=== PATIENT | female | born 1960 | race Caucasian/White ===

== ENCOUNTER 2024-09-01 15:20 | Emergency (ER) | payer OTHER, SELFPAY ==
[2024-09-01 15:26] VITALS: BP 112/77; PULSE 111; RESP 16; TEMP 36.4; O2SAT 97; BMI 21.7
--- NOTE | 2024-09-01 16:02 | ED_ITS ---
HPI - Abdominal Pain 2 General: Chief Complaint: Abdominal Pain Stated Complaint: abd problems (reffered by dr. gaitan) Time Seen by Provider: 09/01/24 15:43 Source: patient Mode of arrival: ambulatory Limitations: no limitations History of Present Illness: 64-year-old female with a history of cir rhosis states she has had increasing ascites she had had a CT scan done a week ago showed massive ascites states she has been having a hard time eating or drinking over the last 30 days states has been losing weight and having some generalized weakness she denies any vomiting or diarrhea or fevers. Associated Symptoms: Denies chills, diarrhea, fever(s), nausea and vomiting Related Data Previous Rx's Medication Instructions Recorded ondansetron 4 mg disintegrating 4 mg PO Q6H PRN nausea and 09/01/24 tablet vomiting #14 tabs Allergies Allergy/AdvReac Type Severity Reaction Status Date / Time adhesive Allergy ALGY-Rash Verified 09/01/24 15:33 Latex, Natural Rubber Allergy ALGY-Rash Verified 09/01/24 15:33 Penicillins Allergy ALGY-Hives Verified 09/01/24 15:33 Review of Systems 2 Const: Reports: fatigue and malaise; Denies: fever(s) or chills ENMT: Denies: throat pain or dental pain Card: Denies: chest pain Resp: Denies: dyspnea GI: Reports: abdominal pain; Denies: nausea, vomiting or diarrhea Musc: Denies: neck pain or back pain Skin/Breast: Denies: rash Neuro: Denies: headache(s) Physical Exam 2 Const: COMMON NORMALS: patient oriented x3 HENMT: COMMON NORMALS: normocephalic and atraumatic HEAD & SCALP: n ormocephalic and atraumatic Eye: COMMON NORMALS: Equal, round and reactive pupils present and EOMs intact bilaterally PUPIL: Yes Equal, round and reactive pupils present Neck/C-Spine: COMMON NORMALS: full ROM and supple Chest: COMMONS NORMALS: normal inspection of the chest and normal palpation of entire chest wall Resp: COMMON NORMALS: normal respiratory effort, No retractions, No use of accessory muscles and clear to auscultation bilaterally AUSCULTATION: clear to auscultation bilaterally Cardio: COMMON NORMALS: regular rate, regular rhythm and No murmurs present (Cardio) RATE: regular rate RHYTHM: regular rhythm GI: COMMON NORMALS: Soft to palpation, non-tender and no masses PALPATION: Yes Soft to palpation OTHER: distended abdomen Extremity: COMMON NORMALS: normal to inspection and full ROM Neuro: COMMON NORMALS: patient oriented x3, moves all extremities and no focal motor deficits Psych: COMMON NORMALS: mental status grossly normal, Normal thought process present and cooperative THOUGHT PROCESS: Normal thought process present Skin: COMMON NORMALS: no rashes or lesions noted and no wounds GENERAL SKIN EXAM: no rashes or lesions noted Course 2 Vital Signs: Vital signs: Vital Signs Temperature 97.6 F 09/01/24 15:26 Pulse Rate 98 09/01/24 17:04 Respiratory Rate 16 09/01/24 15:26 Blood Pressure 103/75 09/01/24 17:04 Pulse Oximetry 96 09/01/24 17:04 Oxygen Delivery Me thod Room Air 09/01/24 17:04 MDM - Abdominal Pain Medical Decision Making Patient presents here with ascites did attempt to get a hold of radiology they were already gone we will set her up for an outpatient paracentesis showed some mild hypokalemia no other findings on labs she stable for discharge she is to get GI follow-up return if worsening she understands agrees to plan Medical Records I reviewed the patient's medical records. Lab Data I reviewed the patient's lab results. 09/01/24 16:09 09/01/24 16:09 Labs/Radiology: Laboratory Results WBC 7.61 10^3/uL (3.29-11.43) 09/01/24 16:09 RBC 5.44 10^6/uL (3.85-5.65) 09/01/24 16:09 Hgb 15.00 g/dL (11.27-16.99) 09/01/24 16:09 Hct 46.0 % (36-47) 09/01/24 16:09 MCV 84.6 fl (85-98) L 09/01/24 16:09 MCH 27.6 pg (27-33) 09/01/24 16:09 MCHC 32.6 g/dL (30-55) 09/01/24 16:09 RDW 14.9 % (12.1-15.1) 09/01/24 16:09 Plt Count 386 10^3/cmm (157-399) 09/01/24 16:09 MPV 9.9 fL (7.4-10.4) 09/01/24 16:09 Neut % (Auto) 73.1 % 09/01/24 16:09 Lymph % (Auto) 15.9 % 09/01/24 16:09 [place] % (Auto) 10.0 % 09/01/24 16:09 Eos % (Auto) 0.3 % 09/01/24 16:09 Baso % (Auto) 0.4 % 09/01/24 16:09 Neut # (Auto) 5.57 10^3/uL (1.8-7.7) 09/01/24 16:09 Lymph # (Auto) 1.2 10^3/uL (0.8-4.8) 09/01/24 16:09 [place] # (Auto) 0.8 10^3/uL (0.2-0.9) 09/01/24 16:09 Eos # (Auto) 0.0 10^3/uL (0.0-0.8) 09/01/24 16:09 Baso # (Auto) 0.0 10^3/uL (0.0-0.1) 09/01/24 16:09 Nucleated RBC % (auto) 0 % 09/01/24 16:09 Nucleated RBCs # 0.0 /100WBC 09/01/24 16:09 PT 12.40 SECONDS (12.1-14.9) 09/01/24 16:09 INR 0.89 (0.8-1.2) 09/01/24 16:09 Sodium 141 mmol/L (136-145) 09/01/24 16:09 Potassium 2.9 mmol/L (3.5-5.1) L 09/01/24 16:09 Chloride 97 mmol/L (98-107) L 09/01/24 16:09 Carbon Dioxide 23 mmol/L (22-29) 09/01/24 16:09 Anion Gap 23.9 (5-19) H 09/01/24 16:09 BUN 10 mg/dL (8-23) 09/01/24 16:09 Creatinine 0.7 mg/dL (0.5-0.9) 09/01/24 16:09 GFR Calculation 84.5 mL/min (90-130) L 09/01/24 16:09 Glucose 106 mg/dL (65-115) 09/01/24 16:09 Calculated Osmolality 291 mOsm/kg (285-295) 09/01/24 16:09 Calcium 10.5 mg/dL (8.5-10.5) 09/01/24 16:09 Magnesium 2.2 mg/dL (1.7-2.3) 09/01/24 16:09 Total Bilirubin 0.3 mg/dL (0.15-1.2) 09/01/24 16:09 AST 12 U/L (0-32) 09/01/24 16:09 ALT 6 U/L (0-33) 09/01/24 16:09 Alkaline Phosphatase 46 U/L (35-105) 09/01/24 16:09 Total Protein 7.5 g/dL (6.6-8.7) 09/01/24 16:09 Albumin 3.8 g/dL (3.5-5.2) 09/01/24 16:09 Globulin 3.7 g/dL (1.3-4.6) 09/01/24 16:09 Lipase 51 U/L (13-60) 09/01/24 16:09 No radiology studies performed this visit Discharge Plan Discharge Patient Disposition: Home Clinical Impression: Abdominal ascites Condition: Stable Prescriptions: New ondansetron 4 mg tablet,disintegrating 4 mg PO Q6H PRN (Reason: nausea and vomiting) Qty: 14 0RF Discharge Orders: Discharge ED (Routine); Ordered 09/01/24 Ordered By: Sayda Duarte Referrals: Artie Faria MD [Primary Care Provider] - Discharge Diet: Advance as tolerated Discharge Activity: Resume usual activity Patient Instructions: Ascites (ED) Coding Level of Care Code ED Automatic Line Set Up Mechanic for Barbara Costello
[2024-09-01 16:15] LABS: Basophils % 0.4 %; Eosinophils % 0.3 %; Lymphocytes # 1.2 10^3/uL (0.8-4.8); Lymphocytes % 15.9 %; Mean Corpuscular HGB Conc 32.6 g/dL (30-55); Mean Corpuscular Hemoglobin 27.6 pg (27-33); Mean Corpuscular Volume 84.6 fl (85-98); Mean Platelet Volume 9.9 fL (7.4-10.4); Monocytes # 0.8 10^3/uL (0.2-0.9); Neutrophils # 5.57 10^3/uL (1.8-7.7); Neutrophils % 73.1 %; Nucleated Red Blood Cells % 0 %; Platelet Count 386 10^3/cmm (157-399); Red Blood Count 5.44 10^6/uL (3.85-5.65); Red Cell Distribution Width 14.9 % (12.1-15.1); White Blood Count 7.61 10^3/uL (3.29-11.43)
[2024-09-01] MEDS: ondansetron 2 mg/ML SDV 2 mL 4 MG IVP (16:20)
[2024-09-01 16:30] LABS: INR 0.89 (0.8-1.2)
[2024-09-01 16:33] LABS: Alanine Aminotransferase 6 U/L (0-33); Albumin Level 3.8 g/dL (3.5-5.2); Alkaline Phosphatase 46 U/L (35-105); Anion Gap 23.9 (5-19); Aspartate Amino Transferase 12 U/L (0-32); Blood Urea Nitrogen 10 mg/dL (8-23); Calcium 10.5 mg/dL (8.5-10.5); Carbon Dioxide 23 mmol/L (22-29); Chloride 97 mmol/L (98-107); Creatinine Clr Calc Pharmacy 80.7471; Globulin 3.7 g/dL (1.3-4.6); Glomerular Filtration Rate 84.5 mL/min (90-130); Glucose 106 mg/dL (65-115); Lipase 51 U/L (13-60); Osmolality Calculated 291 mOsm/kg (285-295); Sodium 141 mmol/L (136-145); Total Bilirubin 0.3 mg/dL (0.15-1.2); Total Protein 7.5 g/dL (6.6-8.7)
[2024-09-01 16:35] LABS: Potassium 2.9 mmol/L (3.5-5.1)
[2024-09-01 17:04] VITALS: BP 103/75; PULSE 98; O2SAT 96
[2024-09-01 17:07] LABS: Magnesium 2.2 mg/dL (1.7-2.3)
--- NOTE | 2024-09-01 17:27 | DCPLANNER ---
faxed para order to [facility]
--- NOTE | 2024-09-01 17:35 | PC.NURSE ---
per verbal order from dr. michelle, change form of Potassium to liquid 60 meq.
[2024-09-01] MEDS: potassium chloride oral liq 20 mEq/15 mL UDC 60 MEQ PO (17:39)
[2024-09-01 17:54] VITALS: BP 106/80; PULSE 113; O2SAT 97
== END 2024-09-01 17:57 | disposition home or self-care (01) ==
PROVIDERS: Emergency Provider Emergency Medicine; Family Provider Family Medicine; PCP Family Medicine
DX: R18.8 Other ascites (principal)
CPT/HCPCS: 80053; 83690; 83735; 85025; 85610; 96374; 99284; J2405

== ENCOUNTER 2024-09-02 11:22 | Day surgery (SDC) | payer OTHER, SELFPAY ==
[2024-09-02 11:51] VITALS: BP 138/84; PULSE 102; RESP 20; TEMP 36.9; O2SAT 96; BMI 21.7
--- NOTE | 2024-09-02 12:00 | US_ITS ---
WS: [id number] ULTRASOUND-GUIDED PARACENTESIS CLINICAL INFORMATION: ASCITES COMPARISON: None. Procedure Informed consent: The risks, benefits, and alternatives of the procedure were discussed with the viky ent. Verbal and written consent was obtained. Timeout: A timeout was performed to confirm the correct patient, procedure, and site. Preparation: A suitable skin site was identified. The patient was prepped and draped in usual sterile fashion. Lidocaine 1% was used for local anesthesia. Catheter: 4 Russian One-step Yueh catheter. Side: LEFT lower quadrant. Fluid Volume: 6800 ml Color: Clear yellow DISPOSITION: Discarded safely. Complications: None. Patient disposition: Discharged from the department in stable condition. US/US paracentesis abd w [id number] IMPRESSION: Uncomplicated ultrasound-guided paracentesis. Removal of 6800 cc
[2024-09-02 13:23] VITALS: BP 130/66; PULSE 89; RESP 18; O2SAT 98
== END 2024-09-02 13:38 | disposition home or self-care (01) ==
PROVIDERS: Radiology Neuroradiology; Family Provider Family Medicine; PCP Family Medicine
PROC: (CPT 49082; principal; 2024-09-02 13:00)
DX: R18.8 Other ascites (principal)
CPT/HCPCS: 49083

== ENCOUNTER 2024-09-22 10:27 | Emergency (ER) | payer OTHER, SELFPAY ==
--- NOTE | 2024-09-22 10:30 | XR_ITS ---
WS: [id number] Portable AP upright chest, 09/22/2024 Clinical Data: dyspnea/cough Comparison: None. Findings: No nodules, masses or effusions are seen. The heart is normal. The pulmonary vascularity is not increased. No pneumonia or pneumothorax is seen. XR/XR chest 1V portable [id number] Impression: Negative chest.
--- NOTE | 2024-09-22 10:30 | US_ITS ---
WS: [id number] ULTRASOUND-GUIDED THERAPEUTIC AND DIAGNOSTIC PARACENTESIS Procedure, risks, and complications have been explained to the patient. Consent is obtained. Utilizing aseptic technique and 1% buffered lidocaine, a small dermatome was made through which a 5 F rench Yueh catheter was inserted. Approximately 3780 ml of clear peritoneal fluid was obtained witho ut difficulty. No complications encountered. US/US paracentesis abd w [id number] IMPRESSION: Uncomplicated paracentesis yielding 3780 ml of peritoneal fluid.
[2024-09-22 10:32] VITALS: BP 105/52; PULSE 111; RESP 18; TEMP 36.4; O2SAT 99; BMI 20.3
--- NOTE | 2024-09-22 10:32 | W.ED.GENADLT ---
HPI - General Adult General: Chief complaint: Back Pain/Injury Stated complaint: no apptite, back pain Time Seen by Provider: 09/22/24 10:30 History of Present Illness: 64-year-old female presents to the emergency room with complaints of abdominal pain and swelling. Patient initially began having abdominal pain and March of this year it got progressively worse over time and then in June she began having significant amount of swelling in her abdomen earlier this month she was seen in the emergency room and had a paracentesis done she had good relief but now has a recurrence she was started on spironolactone despite this she has significant amount of ascites today to the point where it interferes with her breathing when she lies down she feels significantly short of breath. She denies any hemoptysis hematemesis or coffee-ground emesis. She did have a broad spectrum of labs done at a holistic health clinic. I do not recognize some of the names of the testing. Reviewed her labs from her previous visit at that time her lipase and her liver functions and T. bili were all normal. We do not have a CT that has been done recently. Patient is a former smoker she quit several decades ago. About 10 years ago she was diagnosed with breast cancer. This was done in [place] by biopsy. She pursued a holistic treatment course and has not had any chemo or radiation. Associated symptoms: Reports dyspnea and nausea; Deny chest pain or rash Related Data Home Medications Medication Instructions Recorded Confirmed metoclopramide HCl 10 mg tablet 10 mg PO TID PRN Nausea 09/22/24 09/22/24 spironolactone 100 mg tablet 100 mg PO DAILY 09/22/24 09/22/24 Allergies Allergy/AdvReac Type Severity Reaction Status Date / Time adhesive Allergy ALGY-Rash Verified 09/22/24 10:36 Latex, Natural Rubber Allergy ALGY-Rash Verified 09/22/24 10:36 morphine Allergy ADR-Itching Verified 09/22/24 10:36 Penicillins Allergy ALGY-Hives Verified 09/22/24 10:36 Review of Systems Const: Denies: fever(s) or chills Card: Denies: chest pain Resp: Reports: dyspnea and non-productive cough GI: Reports: abdominal pain, nausea and constipation; Denies: hematemesis or coffee ground emesis : Denies: dysuria, urinary frequency or urinary urgency Musc: Denies: neck pain or back pain Skin/Breast: Denies: rash PFSH ED PFSH: Medical History Former smoker Breast cancer Abdominal ascites Surgical History History of cholecystectomy Social History Smoking and tobacco/nicotine status: former use of tobacco/nicotine Quit status (tobacco/nicotine): has quit using Year quit tobacco: Decades Alcohol intake: current Alcohol intake frequency: 0-2 Drinks per Day Alcohol type: wine Physical Exam Const: GENERAL APPEARANCE: cooperative ORIENTATION/CONSCIOUSNESS: Yes awake, Yes oriented to person, Yes oriented to place and Yes oriented to time HENMT: COMMON NORMALS: normocephalic, atraumatic and hearing grossly normal bilaterally HEAD & SCALP: normocephalic and atraumatic Resp: COMMON NORMALS: normal respiratory effort, No retractions, No use of accessory muscles and clear to auscultation bilaterally AUSCULTATION: clear to auscultation bilaterally Cardio: COMMON NORMALS: regular rate, regular rhythm and No murmurs present (Cardio) RATE: regular rate RHYTHM: regular rhythm GI: COMMON NORMALS: Soft to palpation and No hepatosplenomegaly present INSPECTION: Yes Fluid wave present AUSCULTATION: Yes normoactive bowel sounds PALPATION: Yes Soft to palpation, No Tenderness to palpation present (GI), No Guarding due to palpation present (GI) and Yes No hepatosplenomegaly present PERCUSSION: dullness to percussion and Fluid wave present Extremity: COMMON NORMALS: normal to inspection, capillary refill normal, no clubbing, cyanosis or edema, no calf tenderness and no pedal edema Neuro: SENSORIUM/ORIENTATION: Yes oriented to person, Yes oriented to place and Yes oriented to time Skin: COMMON NORMALS: no rashes or lesions noted GENERAL SKIN EXAM: no rashes or lesions noted Course Vital Signs: Vital signs: Vital Signs Temperature 97.5 F L 09/22/24 10:32 Pulse Rate 102 H 09/22/24 15:44 Respiratory Rate 16 09/22/24 12:59 Blood Pressure 107/64 09/22/24 15:44 Pulse Oximetry 98 09/22/24 15:44 Oxygen Delivery Me thod Room Air 09/22/24 12:59 MDM - General Adult Medical Decision Making 4 L removed via paracentesis done by Dr. Rehman. Fluid is serous no discoloration. CT done with contrast concerning for peritoneal primary carcinomatosis possibly from colon or gynecologic origin difficult to tell. Will refer patient to oncology Discussed findings with patient and family. Lab Data 09/22/24 10:47 09/22/24 10:47 Radiology Impressions Chest X-Ray 09/22/24 10:30 Impression: Negative chest. Paracentesis Ultrasound 09/22/24 10:30 IMPRESSION: Uncomplicated paracentesis yielding 3780 ml of peritoneal fluid. Chest/Abdomen/Pelvis CT 09/22/24 10:54 IMPRESSION: 1. Above-described abdominal and pelvis findings suspicious for peritoneal carcinomatosis with possibly mucinous ascites. 2. Diffuse peritoneal nodularity with omental caking. Prominent soft tissue nodularity along the diaphragmatic surfaces with endosteal scalloping about the RIGHT hepatic lobe. Dominant nodule in this area measures 4.3 x 3.5 cm. 3. Diffuse induration with peritoneal metastasis in the central mesentery upper abdomen and LEFT abdomen. 4. Moderate to large volume abdominal ascites. 5. Lobulations with adhesions in the pelvis and both adnexa. Recommend correlation with history of mucinous COLLABORATIVE PHYSICIAN or colonic neoplasm. 6. Nodular areas of peritoneal metastasis in the pelvis. 7. Patient risk for bowel obstruction. Sigmoid colon appears significantly narrowed in the pelvis. 8. No acute findings in the lungs. Abdomen/Pelvis CT 09/22/24 13:58 IMPRESSION: Loculated low-attenuation collections in the adnexa and RIGHT lower quadrant are unchanged post paracentesis. See discussion and differential considerations above. Laboratory Results WBC 5.23 10^3/uL (3.29-11.43) 09/22/24 10:47 RBC 5.76 10^6/uL (3.85-5.65) H 09/22/24 10:47 Hgb 15.70 g/dL (11.27-16.99) 09/22/24 10:47 Hct 50.2 % (36-47) H 09/22/24 10:47 MCV 87.2 fl (85-98) 09/22/24 10:47 MCH 27.3 pg (27-33) 09/22/24 10:47 MCHC 31.3 g/dL (30-55) 09/22/24 10:47 RDW 16.2 % (12.1-15.1) H 09/22/24 10:47 Plt Count 448 10^3/cmm (157-399) H 09/22/24 10:47 MPV 9.0 fL (7.4-10.4) 09/22/24 10:47 Neut % (Auto) 65.5 % 09/22/24 10:47 Lymph % (Auto) 21.8 % 09/22/24 10:47 [place] % (Auto) 9.9 % 09/22/24 10:47 Eos % (Auto) 1.0 % 09/22/24 10:47 Baso % (Auto) 0.8 % 09/22/24 10:47 Neut # (Auto) 3.43 10^3/uL (1.8-7.7) 09/22/24 10:47 Lymph # (Auto) 1.1 10^3/uL (0.8-4.8) 09/22/24 10:47 [place] # (Auto) 0.5 10^3/uL (0.2-0.9) 09/22/24 10:47 Eos # (Auto) 0.1 10^3/uL (0.0-0.8) 09/22/24 10:47 Baso # (Auto) 0.0 10^3/uL (0.0-0.1) 09/22/24 10:47 Nucleated RBC % (auto) 0 % 09/22/24 10:47 Nucleated RBCs # 0.0 /100WBC 09/22/24 10:47 PT 12.20 SECONDS (12.1-14.9) 09/22/24 10:47 INR 0.88 (0.8-1.2) 09/22/24 10:47 APTT 30.1 SECONDS (23.9-36.7) 09/22/24 10:47 Sodium 133 mmol/L (136-145) L 09/22/24 10:47 Potassium 3.8 mmol/L (3.5-5.1) 09/22/24 10:47 Chloride 92 mmol/L (98-107) L 09/22/24 10:47 Carbon Dioxide 19 mmol/L (22-29) L 09/22/24 10:47 Anion Gap 25.8 (5-19) H 09/22/24 10:47 BUN 10 mg/dL (8-23) 09/22/24 10:47 Creatinine 0.7 mg/dL (0.5-0.9) 09/22/24 10:47 GFR Calculation 84.5 mL/min (90-130) L 09/22/24 10:47 Glucose 92 mg/dL (65-115) 09/22/24 10:47 Calculated Osmolality 275 mOsm/kg (285-295) L 09/22/24 10:47 Calcium 10.2 mg/dL (8.5-10.5) 09/22/24 10:47 Magnesium 1.8 mg/dL (1.7-2.3) 09/22/24 10:47 Total Bilirubin 0.3 mg/dL (0.15-1.2) 09/22/24 10:47 AST 14 U/L (0-32) 09/22/24 10:47 ALT 12 U/L (0-33) 09/22/24 10:47 Alkaline Phosphatase 65 U/L (35-105) 09/22/24 10:47 Ammonia 23 umol/L (11-51) 09/22/24 10:47 Total Protein 6.6 g/dL (6.6-8.7) 09/22/24 10:47 Albumin 3.0 g/dL (3.5-5.2) L 09/22/24 10:47 Globulin 3.6 g/dL (1.3-4.6) 09/22/24 10:47 Lipase 48 U/L (13-60) 09/22/24 10:47 Urine Color Dark yellow (Yellow) A 09/22/24 11:03 Urine Appearance Turbid (CLEAR) A 09/22/24 11:03 Urine pH 5.5 (5-7) 09/22/24 11:03 Ur Specific [place] 1.033 (1.005-1.030) H 09/22/24 11:03 Urine Protein 2+ (Negative) A 09/22/24 11:03 Urine Glucose (UA) Negative (Normal) 09/22/24 11:03 Urine Ketones 1+ (Negative) H 09/22/24 11:03 Urine Blood Negative (Negative) 09/22/24 11:03 Urine Nitrate Negative (Negative) 09/22/24 11:03 Urine Bilirubin 3+ (Negative) H 09/22/24 11:03 Urine Urobilinogen 1.0 mg/dL (Negative) 09/22/24 11:03 Ur Leukocyte Esterase Trace (Negative) A 09/22/24 11:03 Urine RBC 21-50 /hpf (0-2) H 09/22/24 11:03 Urine WBC 6-10 /hpf (0-5) 09/22/24 11:03 Ur Squamous Epith Cells 21-50 /hpf (0-5) 09/22/24 11:03 Amorphous Sediment Not Reportable 09/22/24 11:03 Urine Bacteria None seen /hpf (NONE) 09/22/24 11:03 Hyaline Casts 196.12 /lpf 09/22/24 11:03 Fluid pH Cancelled 09/22/24 13:09 Fluid Glucose 62.0 mg/dL 09/22/24 13:09 Fluid Total Protein Cancelled 09/22/24 13:09 Fluid Albumin Cancelled 09/22/24 13:09 Fluid Amylase Cancelled 09/22/24 13:09 Peritoneal Color Pale yellow (Pale Yellow) 09/22/24 13:09 Peritoneal Appearance Hazy (Clear) 09/22/24 13:09 Peritoneal pH 7.0 09/22/24 13:09 Peritoneal WBC 303 /uL 09/22/24 13:09 Peritoneal RBC 0 10^3/uL 09/22/24 13:09 Periton Mononu # Auto 0.299 10^3/uL 09/22/24 13:09 Mononuclear WBCs % 98.600 % 09/22/24 13:09 Polynuclear WBCs % 1.400 % 09/22/24 13:09 Perit Polynuc WBCs # 0.004 10^3/uL 09/22/24 13:09 Peritoneal Diff Commnt Yes 09/22/24 13:09 Peritoneal Tot Protein 3.6 g/dL 09/22/24 13:09 Peritoneal Albumin 2.0 g/dL 09/22/24 13:09 Pleural pH Cancelled 09/22/24 13:09 All radiology interpretation(s) finalized by discharge Discharge Plan Discharge Patient Disposition: Home Clinical Impression: Abdominal ascites, Abnormal CT of the abdomen Condition: Stable Prescriptions: No Action spironolactone 100 mg tablet 100 mg PO DAILY metoclopramide HCl 10 mg tablet 10 mg PO TID PRN (Reason: Nausea) Discharge Orders: Discharge ED (Routine); Ordered 09/22/24 Ordered By: Nav Jones Referrals: Artie Faria MD [Primary Care Provider] - Patient Instructions: Opioid Safety, Pain Management Activity Restrictions/Additional Instructions: Thank you for choosing [facility] for your healthcare needs today. It is very important that you follow up as instructed or that you return to the Emergency Department should you have concerns or if your condition changes or worsens in any way. You are seen in the emergency room with a complaint of fluid in your abdomen. This fluid was sent for analysis will take several days to be completed. His CT done in the emergency room was concerning for peritoneal carcinomatosis. The origin of this is uncertain. The diagnosis will need to be confirmed. The fluid taken off your abdomen today will be analyzed you may need further testing as well to confirm exactly what the abnormal findings on the CT are from. We recommend that you follow-up with oncology. transition program manager will make a referral for you. You may eat what ever you feel able to. Unfortunately it is likely that the fluid in the abdomen will recur over the next few weeks. Follow-up with your primary care provider within the next week. They can schedule repeat paracentesis if this is needed. Coding Level of Care Code ED Facing Cutting Machine Operator for Barbara Costello
--- NOTE | 2024-09-22 10:54 | CT_ITS ---
WS: [id number] CT CHEST, ABDOMEN, AND PELVIS TECHNIQUE: Contrast-enhanced CT of the chest, abdomen, and pelvis with coronal and sagittal reformatt ed images. CLINICAL INFORMATION: weight loss, ascites, hx breast CA COMPARISON: None. DLP: 628.[address] scans at [facility] use at least one of these dose optimization techniques: automated e xposure control; mA and/or kV adjustment per patient size (includes targeted exams where dose is matc hed to clinical indication); or iterative reconstruction. CT CHEST: Lungs are well aerated. No acute pulmonary infiltrates. No focal pneumonia or pleural fluid. Partiall y calcified subpleural nodule or granuloma LEFT upper lobe measuring 6 mm. Calcified granuloma LEFT l ower lobe. Tiny LEFT pleural effusion. Mild thoracic curve. Mild thoracic kyphosis. Small thyroid nod ules. Partially calcified small LEFT thyroid nodule. No axillary lymphadenopathy. Slightly ectatic as cending thoracic aorta measuring 3.2 cm. Normal caliber descending thoracic aorta. CT ABDOMEN AND: Prior cholecystectomy. Portal vein and splenic vein are patent. Diffuse abdominal ascites with areas of peritoneal nodularity suspicious for peritoneal carcinomatosis. Nodularity about the RIGHT hepati c lobe and along the diaphragmatic surface with multiple nodules compatible with peritoneal metastati c disease. Scalloping about the RIGHT hepatic lobe with a diaphragmatic nodule measuring 3.5 x 4.3 cm . Extensive peritoneal carcinomatosis with nodularity visualized in the mid and LEFT abdomen compatib le with omental caking. Large volume abdominal ascites. Lobulated septated fluid in the pelvis and doretha th adnexa. Recommend correlation with prior CHILDREN'S CHOIR DIRECTOR malignancy. Normal GE junction. Adrenal glands are normal. Normal renal parenchymal enhancement. No hydronephrosi s. Normal pancreas. Normal caliber abdominal aorta. Mild aortic calcification. Advanced degenerative arthritis RIGHT hip with [id number] articulation. Adhesions and peritoneal carcinomatosis in the pelvis results significant narrowing of the traversing sigmoid colon. Patient at risk for bowel obstruction in this area mild constipation in the transvers e colon. CT/CT chest abdpel w/*[id number] IMPRESSION: 1. Above-described abdominal and pelvis findings suspicious for peritoneal car cinomatosis with possibly mucinous ascites. 2. Diffuse peritoneal nodularity with omental caking. Prominent soft tissue no dularity along the diaphragmatic surfaces with endosteal scalloping about the R IGHT hepatic lobe. Dominant nodule in this area measures 4.3 x 3.5 cm. 3. Diffuse induration with peritoneal metastasis in the central mesentery uppe r abdomen and LEFT abdomen. 4. Moderate to large volume abdominal ascites. 5. Lobulations with adhesions in the pelvis and both adnexa. Recommend correla tion with history of mucinous CHILDREN'S CHOIR DIRECTOR or colonic neoplasm. 6. Nodular areas of peritoneal metastasis in the pelvis. 7. Patient risk for bowel obstruction. Sigmoid colon appears significantly alma rowed in the pelvis. 8. No acute findings in the lungs.
[2024-09-22 10:56] LABS: Basophils % 0.8 %; Eosinophils # 0.1 10^3/uL (0.0-0.8); Hematocrit 50.2 % (36-47); Lymphocytes # 1.1 10^3/uL (0.8-4.8); Lymphocytes % 21.8 %; Mean Corpuscular HGB Conc 31.3 g/dL (30-55); Mean Corpuscular Hemoglobin 27.3 pg (27-33); Mean Corpuscular Volume 87.2 fl (85-98); Monocytes # 0.5 10^3/uL (0.2-0.9); Monocytes % 9.9 %; Neutrophils # 3.43 10^3/uL (1.8-7.7); Neutrophils % 65.5 %; Nucleated Red Blood Cells % 0 %; Platelet Count 448 10^3/cmm (157-399); Red Blood Count 5.76 10^6/uL (3.85-5.65); Red Cell Distribution Width 16.2 % (12.1-15.1); White Blood Count 5.23 10^3/uL (3.29-11.43)
[2024-09-22 11:09] LABS: INR 0.88 (0.8-1.2)
[2024-09-22 11:10] LABS: Partial Thromboplastin Time 30.1 SECONDS (23.9-36.7)
[2024-09-22 11:14] LABS: Alanine Aminotransferase 12 U/L (0-33); Alkaline Phosphatase 65 U/L (35-105); Anion Gap 25.8 (5-19); Aspartate Amino Transferase 14 U/L (0-32); Blood Urea Nitrogen 10 mg/dL (8-23); Calcium 10.2 mg/dL (8.5-10.5); Carbon Dioxide 19 mmol/L (22-29); Chloride 92 mmol/L (98-107); Creatinine Clr Calc Pharmacy 78.6267; Globulin 3.6 g/dL (1.3-4.6); Glomerular Filtration Rate 84.5 mL/min (90-130); Glucose 92 mg/dL (65-115); Lipase 48 U/L (13-60); Magnesium 1.8 mg/dL (1.7-2.3); Osmolality Calculated 275 mOsm/kg (285-295); Potassium 3.8 mmol/L (3.5-5.1); Sodium 133 mmol/L (136-145); Total Bilirubin 0.3 mg/dL (0.15-1.2); Total Protein 6.6 g/dL (6.6-8.7)
[2024-09-22 11:25] LABS: Ammonia 23 umol/L (11-51)
[2024-09-22 11:26] LABS: Bilirubin Urine 3+ (Negative); Blood Urine Negative (Negative); Glucose Urine UA Negative (Normal); Ketones Urine 1+ (Negative); Leukocyte Esterase Urine Trace (Negative); Nitrate Urine Negative (Negative); Protein Urine 2+ (Negative); Urine Appearance Turbid (CLEAR); Urine Color Dark Yellow (Yellow); pH Urine 5.5 (5-7)
[2024-09-22] MEDS: iohexol 350 mg/mL 500 mL Btl (per mL) IV (11:26)
[2024-09-22 11:32] LABS: Add Urine Microscopic? YES; Bacteria Urine None Seen /hpf; Hyaline Casts Urine 196.12 /lpf; RBC Urine 21-50 /hpf (0-2); Squamous Epithelial Cell Urine 21-50 /hpf (0-5)
[2024-09-22 12:03] LABS: Add Urine Culture? No; Specific Gravity, Urine 1.033 (1.005-1.030)
[2024-09-22 12:38] VITALS: BP 103/73; O2SAT 94
[2024-09-22 12:59] VITALS: BP 123/69; PULSE 106; RESP 16; O2SAT 96
[2024-09-22 13:02] VITALS: BP 116/86; PULSE 104; O2SAT 96
[2024-09-22 13:25] LABS: Cyto Order Verification No Order
[2024-09-22 13:27] LABS: Mononuclear #, Pertinoneal Fl 0.299 10^3/uL; Polynuclear # Cells, Perit 0.004 10^3/uL; RBC Pertioneal Fluid 0 10^3/uL; WBC Peritoneal Fluid 303 /uL
--- NOTE | 2024-09-22 13:47 | PC.NURSE ---
[id number] RETURNED FROM PARACENTESIS. DR. LOPEZ NOTIFIED, PERITONEAL CATHETER PULLED BY DR. LOPEZ.
--- NOTE | 2024-09-22 13:58 | CT_ITS ---
WS: [id number] CT ABDOMEN PELVIS TECHNIQUE: Noncontrast CT of the abdomen and pelvis with coronal and sagittal reformatted images. CLINICAL INFORMATION: Post paracentesis, eval loculated ascitic fluid COMPARISON: None. DLP: 414.[address] scans at [facility] use at least one of these dose optimization techniques: automated e xposure control; mA and/or kV adjustment per patient size (includes targeted exams where dose is matc hed to clinical indication); or iterative reconstruction. FINDINGS: Post paracentesis. Previously described loculated collections in the pelvis and adnexa with septation s are not significantly changed from study earlier today post paracentesis. Persistent moderate narro wing of the sigmoid colon.Persistent loculated collection in the RIGHT adnexa extending into the RIGH T lower quadrant. Consider mucinous METAL INSPECTOR or colon carcinoma with metastasis. 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 Mild persistent hepatic and perisplenic ascites extending into the paracolic gutters. CT/CT abdomen pelvis wo con [id number] IMPRESSION: Loculated low-attenuation collections in the adnexa and RIGHT lower quadrant ar e unchanged post paracentesis. See discussion and differential considerations ramón jesus.
[2024-09-22 14:09] LABS: Color, Peritoneal Fluid Pale Yellow (Pale Yellow); Total Protein Peritoneal Fluid 3.6 g/dL
[2024-09-22 14:10] LABS: Appearance, Peritoneal Fluid Hazy (Clear)
[2024-09-22 14:25] LABS: Pathology Referral Yes
--- NOTE | 2024-09-22 15:24 | DCPLANNER ---
messaged oncology for er f/u
[2024-09-22 15:44] VITALS: BP 107/64; PULSE 102; O2SAT 98
[2024-09-25 20:35] LABS: Amylase, Peritoneal Fluid 15 U/L
== END 2024-09-22 15:48 | disposition home or self-care (01) ==
PROVIDERS: Emergency Provider Family Medicine; Family Provider Family Medicine; PCP Family Medicine
DX: R18.8 Other ascites (principal); R93.5 Abnormal findings on diagnostic imaging of other abdominal regions, including retroperitoneum; Z87.891 Personal history of nicotine dependence; Z85.3 Personal history of malignant neoplasm of breast
CPT/HCPCS: 36415; 49083; 71045; 71260; 74176; 74177; 80053; 80503; 81001; 82042; 82140; 82150; 82945; 83690; 83735; 83986; 84157; 85025; 85610; 85730; 87070; 87075; 87205; 89050; 99285

== ENCOUNTER 2024-09-30 14:19 | Outpatient (CLI) | payer OTHER, SELFPAY ==
[2024-09-30 14:52] LABS: Basophils % 0.6 %; Eosinophils % 0.6 %; Hematocrit 43.8 % (36-47); Lymphocytes # 1.4 10^3/uL (0.8-4.8); Lymphocytes % 22.9 %; Mean Corpuscular HGB Conc 31.5 g/dL (30-55); Mean Corpuscular Hemoglobin 27.4 pg (27-33); Mean Corpuscular Volume 87.1 fl (85-98); Mean Platelet Volume 8.9 fL (7.4-10.4); Monocytes # 0.7 10^3/uL (0.2-0.9); Monocytes % 11.4 %; Neutrophils # 3.96 10^3/uL (1.8-7.7); Neutrophils % 63.9 %; Nucleated Red Blood Cells % 0 %; Platelet Count 366 10^3/cmm (157-399); Red Blood Count 5.03 10^6/uL (3.85-5.65); Red Cell Distribution Width 16.9 % (12.1-15.1); White Blood Count 6.21 10^3/uL (3.29-11.43)
[2024-09-30 15:16] LABS: Carcinoembryonic Antigen 1.1 ng/mL (0.0-4.7); Tumor Marker Alpha Fetoprotein 2.8 ng/mL (0-8.3)
[2024-09-30 15:27] LABS: Alanine Aminotransferase 13 U/L (0-33); Albumin Level 2.9 g/dL (3.5-5.2); Alkaline Phosphatase 60 U/L (35-105); Anion Gap 14.5 (5-19); Aspartate Amino Transferase 15 U/L (0-32); Blood Urea Nitrogen 13 mg/dL (8-23); Calcium 9.2 mg/dL (8.5-10.5); Carbon Dioxide 27 mmol/L (22-29); Chloride 99 mmol/L (98-107); Glucose 122 mg/dL (65-115); Lactate Dehydrogenase 274 U/L (135-214); Osmolality Calculated 285 mOsm/kg (285-295); Potassium 3.5 mmol/L (3.5-5.1); Sodium 137 mmol/L (136-145); Total Bilirubin 0.2 mg/dL (0.15-1.2); Total Protein 5.9 g/dL (6.6-8.7)
[2024-09-30 16:59] LABS: Cancer Antigen 19 9 6.61 U/mL (0-35)
== END 2024-09-30 14:20 | disposition home or self-care (01) ==
LOC: LAB 14:24
PROVIDERS: Family Provider Family Medicine; PCP Family Medicine; Visit Provider Family Medicine
DX: C78.6 Secondary malignant neoplasm of retroperitoneum and peritoneum (principal)
CPT/HCPCS: 36415; 80053; 82105; 82378; 83615; 85025; 86301; 86304

== ENCOUNTER → 2024-10-14 10:30 | Outpatient (BNVA) | payer OTHER, SELFPAY | PROVIDERS: Family Provider Family Medicine; PCP Family Medicine; Visit Provider Family Medicine | DX: R18.8 Other ascites (principal); C56.9 Malignant neoplasm of unspecified ovary; C80.0 Disseminated malignant neoplasm, unspecified; C50.919 Malignant neoplasm of unspecified site of unspecified female breast | CPT/HCPCS: 80053 ==

== ENCOUNTER 2024-10-16 11:25 | Day surgery (SDC) | payer OTHER, SELFPAY ==
--- NOTE | 2024-10-16 11:42 | US_ITS ---
WS: [id number] ULTRASOUND-GUIDED PARACENTESIS CLINICAL INFORMATION: ASCITES COMPARISON: None. Procedure Informed consent: The risks, benefits, and alternatives of the procedure were discussed with the viky ent. Verbal and written consent was obtained. Timeout: A timeout was performed to confirm the correct patient, procedure, and site. Preparation: A suitable skin site was identified. The patient was prepped and draped in usual sterile fashion. Lidocaine 1% was used for local anesthesia. Catheter: 4 Ethiopian One-step Yueh catheter. Side: LEFT lower quadrant. Fluid Volume: 3500 ml Color: Clear yellow DISPOSITION: Discarded safely. Complications: None. Patient disposition: Discharged from the department in stable condition. US/US paracentesis abd w [id number] IMPRESSION: Uncomplicated ultrasound-guided paracentesis. Removal of 3500 cc
[2024-10-16 11:49] VITALS: BP 109/72; PULSE 93; RESP 18; TEMP 36.8; O2SAT 97; BMI 19.5
== END 2024-10-16 13:00 | disposition home or self-care (01) ==
PROVIDERS: Radiology Neuroradiology; PCP Family Medicine; Visit Provider Family Medicine
PROC: (CPT 49082; principal; 2024-10-16 12:00)
DX: R18.8 Other ascites (principal)
CPT/HCPCS: 49083

== ENCOUNTER 2024-10-28 11:10 | Day surgery (SDC) | payer OTHER, SELFPAY ==
[2024-10-28 11:28] VITALS: BP 118/78; PULSE 127; RESP 18; TEMP 36.7; O2SAT 97; BMI 22.4
--- NOTE | 2024-10-28 11:31 | US_ITS ---
WS: [id number] ULTRASOUND-GUIDED PARACENTESIS CLINICAL INFORMATION: Ascities COMPARISON: None. Procedure Informed consent: The risks, benefits, and alternatives of the procedure were discussed with the patient. Verbal and written consent was obtained. Timeout: A timeout was performed to confirm the correct patient, procedure, and site. Preparation: A suitable skin site was identified. The patient was prepped and draped in usual sterile fashion. Lidocaine 1% was used for local anesthesia. Catheter: 4 Swedish One-step Yueh catheter. Side: LEFT lower quadrant. Fluid Volume: 5000 ml Color: Clear yellow DISPOSITION: Discarded safely. Complications: None. Patient disposition: Discharged from the department in stable condition. US/US paracentesis abd w [id number] IMPRESSION: Uncomplicated ultrasound-guided paracentesis. Removal of 5000 cc
== END 2024-10-28 13:05 | disposition home or self-care (01) ==
LOC: GILAB 11:11
PROVIDERS: Radiology Neuroradiology; PCP Family Medicine; Visit Provider Family Medicine
PROC: (CPT 49082; principal; 2024-10-28 12:00)
DX: R18.8 Other ascites (principal)
CPT/HCPCS: 49083

== ENCOUNTER 2024-11-07 10:15 | Emergency (ER) | payer OTHER, SELFPAY ==
[2024-11-07 10:29] VITALS: BP 110/76; PULSE 110; RESP 98; TEMP 36.7; O2SAT 98; BMI 21.7
--- NOTE | 2024-11-07 11:45 | US_ITS ---
WS: [id number] ULTRASOUND-GUIDED THERAPEUTIC PARACENTESIS Procedure, risks, and complications have been explained to the patient. Consent is obtained. Utilizing aseptic technique and 1% buffered lidocaine, a small dermatome was made through which a 5 Mongolian Yueh catheter was inserted. Approximately 4250 ml of clear peritoneal fluid was obtained without difficulty. No complications encountered. US/US paracentesis abd w [id number] IMPRESSION: Uncomplicated paracentesis yielding 4250 ml of peritoneal fluid.
[2024-11-07 11:46] LABS: Basophils # 0.1 10^3/uL (0.0-0.1); Basophils % 0.8 %; Eosinophils % 0.5 %; Hematocrit 44.6 % (36-47); Lymphocytes # 1.7 10^3/uL (0.8-4.8); Lymphocytes % 26.1 %; Mean Corpuscular HGB Conc 31.4 g/dL (30-55); Mean Corpuscular Hemoglobin 28.3 pg (27-33); Mean Corpuscular Volume 90.1 fl (85-98); Mean Platelet Volume 8.8 fL (7.4-10.4); Monocytes # 0.7 10^3/uL (0.2-0.9); Monocytes % 10.8 %; Neutrophils # 4.01 10^3/uL (1.8-7.7); Neutrophils % 61.2 %; Nucleated Red Blood Cells % 0 %; Platelet Count 467 10^3/cmm (157-399); Red Blood Count 4.95 10^6/uL (3.85-5.65); Red Cell Distribution Width 18.3 % (12.1-15.1); White Blood Count 6.55 10^3/uL (3.29-11.43)
--- NOTE | 2024-11-07 11:57 | ED_ITS ---
HPI - General Adult 2 General: Chief complaint: General Medical Stated complaint: abdominal draining Time Seen by Provider: 11/07/24 11:44 History of Present Illness: 64-year-old female presents to the [facility] ency room from home. Patient has been seen here a few times she has recurrent malignant ascites. She has been diagnosed with ovarian cancer she has omental caking. She is following with a oncologist in [place]. She has been getting regular paracentesis. She is last her last 1 was 10 days ago. She denies any fever sweats chills no abdominal pain just to sense of fullness worsening loss of appetite. Associated symptoms: Deny chest pain, dyspnea or rash Related Data Home Medications ?Medication ?Instructions ?Recorded ?Confirmed metoclopramide HCl 10 mg tablet 10 mg PO TID PRN Nause a 09/22/24 11/07/24 furosemide 40 mg tablet 40 mg PO DAILY 10/15/2410/25 potassium chloride 20 mEq 20 meq PO BID 11/07/2411/07 tablet,extended release Previous Rx's ?Medication ?Instructions ?Recorded bumetanide 1 mg tablet 1 mg PO DAILY #30 tabs 10/14 hydrocodone 7.5 mg-acetaminophen 1 tab PO Q6H PRN pain 10 days #40 10/24/24 325 mg tablet tabs metoclopramide HCl 10 mg tablet 10 mg PO Q6H PRN nause a and 11/07/24 vomiting #20 tabs oxycodone-acetaminophen 7.5 mg-325 1 tab PO Q6H PRN pa in #30 tabs 11/07/24 mg tablet Allergies Allergy/AdvReac Type Severity Reaction Status Date / Time adhesive Allergy ALGY-Rash Verified 10/28/24 11:32 Latex, Natural Rubber Allergy ALGY-Rash Verified 10/28/24 11:32 morphine Allergy ADR-Itching Verified 10/28/24 11:32 Review of Systems 2 Const: Denies: fever(s) or chills Card: Denies: chest pain Resp: Denies: dyspnea GI: Denies: abdominal pain : Denies: dysuria, urinary frequency or urinary urgency Musc: Denies: neck pain or back pain Skin/Breast: Denies: rash PFSH ED 2 PFSH: Medical History Abdominal ascites Former smoker Breast cancer Surgical History History of cholecystectomy Social History Smoking and tobacco/nicotine status: never used tobacco/nicotine Quit status (tobacco/nicotine): has quit using Year quit tobacco: Decades Alcohol intake: current Alcohol intake frequency: 0-2 Drinks per Day Alcohol type: wine Physical Exam 2 Const: COMMON NORMALS: no acute distress GENERAL APPEARANCE: cooperative ORIENTATION/CONSCIOUSNESS: Yes awake, Yes oriented to person, Yes oriented to place and Yes oriented to time HENMT: COMMON NORMALS: normocephalic, atraumatic and hearing grossly normal bilaterally HEAD & SCALP: normocephalic and atraumatic Resp: COMMON NORMALS: normal respiratory effort, No retractions, No use of accessory muscles and clear to auscultation bilaterally AUSCULTATION: clear to auscultation bilaterally Cardio: COMMON NORMALS: regular rate, regular rhythm and No murmurs present (Cardio) RATE: regular rate RHYTHM: regular rhythm GI: COMMON NORMALS: Soft to palpation and No hepatosplenomegaly present I NSPECTION: Yes abdominal distension and Yes Fluid wave present AUSCULTATION: Yes normoactive bowel sounds PALPATION: Yes Soft to palpation, No Tenderness to palpation present (GI), No Guarding due to palpation present (GI) and Yes No hepatosplenomegaly present PERCUSSION: Fluid wave present Extremity: COMMON NORMALS: normal to inspection, capillary refill normal, no clubbing, cyanosis or edema, no calf tenderness and no pedal edema Neuro: SENSORIUM/ORIENTATION: Yes oriented to person, Yes oriented to place and Yes oriented to time Skin: COMMON NORMALS: no rashes or lesions noted GENERAL SKIN EXAM: no rashes or lesions noted Course 2 Vital Signs: Vital signs: Vital Signs Temperature 98.0 F 11/07/24 10:29 Pulse Rate 100 11/07/24 14:47 Respiratory Rate 98 H 11/07/24 10:29 Blood Pressure 105/61 11/07/24 14:47 Pulse Oximetry 98 11/07/24 14:47 Oxygen Delivery Me thod Room Air 11/07/24 10:29 MDM - General Adult Medical Decision Making Drain 4250 mL. Patient is feeling much better she does not have any significant orthostasis. Will culture ascitic ascites fluid white count normal she has no abdominal tenderness no signs of SBP. Discharge patient to home she is having increasing abdominal pain. Prescribed oxycodone and promethazine to use as needed. Medical Records I reviewed the patient's medical records. Lab Data I reviewed the patient's lab results. 11/07/24 11:39 11/07/24 11:39 Radiology Impressions Paracentesis Ultrasound 11/07/24 11:45 IMPRESSION: Uncomplicated paracentesis yielding 4250 ml of peritoneal fluid. Laboratory Results WBC 6.55 10^3/uL (3.29-11.43) 11/07/24 11:39 RBC 4.95 10^6/uL (3.85-5.65) 11/07/24 11:39 Hgb 14.00 g/dL (11.27-16.99) 11/07/24 11:39 Hct 44.6 % (36-47) 11/07/24 11:39 MCV 90.1 fl (85-98) 11/07/24 11:39 MCH 28.3 pg (27-33) 11/07/24 11:39 MCHC 31.4 g/dL (30-55) 11/07/24 11:39 RDW 18.3 % (12.1-15.1) H 11/07/24 11:39 Plt Count 467 10^3/cmm (157-399) H 11/07/24 11:39 MPV 8.8 fL (7.4-10.4) 11/07/24 11:39 Neut % (Auto) 61.2 % 11/07/24 11:39 Lymph % (Auto) 26.1 % 11/07/24 11:39 [place] % (Auto) 10.8 % 11/07/24 11:39 Eos % (Auto) 0.5 % 11/07/24 11:39 Baso % (Auto) 0.8 % 11/07/24 11:39 Neut # (Auto) 4.01 10^3/uL (1.8-7.7) 11/07/24 11:39 Lymph # (Auto) 1.7 10^3/uL (0.8-4.8) 11/07/24 11:39 [place] # (Auto) 0.7 10^3/uL (0.2-0.9) 11/07/24 11:39 Eos # (Auto) 0.0 10^3/uL (0.0-0.8) 11/07/24 11:39 Baso # (Auto) 0.1 10^3/uL (0.0-0.1) 11/07/24 11:39 Nucleated RBC % (auto) 0 % 11/07/24 11:39 Nucleated RBCs # 0.0 /100WBC 11/07/24 11:39 PT 12.20 SECONDS (12.1-14.9) 11/07/24 11:39 INR 0.85 (0.8-1.2) 11/07/24 11:39 APTT 27.9 SECONDS (23.9-36.7) 11/07/24 11:39 Sodium 137 mmol/L (136-145) 11/07/24 11:39 Potassium 4.1 mmol/L (3.5-5.1) 11/07/24 11:39 Chloride 97 mmol/L (98-107) L 11/07/24 11:39 Carbon Dioxide 26 mmol/L (22-29) 11/07/24 11:39 Anion Gap 18.1 (5-19) 11/07/24 11:39 BUN 10 mg/dL (8-23) 11/07/24 11:39 Creatinine 0.6 mg/dL (0.5-0.9) 11/07/24 11:39 GFR Calculation 101.0 mL/min (90-130) 11/07/24 11:39 Glucose 101 mg/dL (65-115) 11/07/24 11:39 Calculated Osmolality 283 mOsm/kg (285-295) L 11/07/24 11:39 Lactic Acid 1.7 mmol/L (0.5-2.2) 11/07/24 11:39 Calcium 9.4 mg/dL (8.5-10.5) 11/07/24 11:39 Total Bilirubin 0.2 mg/dL (0.15-1.2) 11/07/24 11:39 AST 18 U/L (0-32) 11/07/24 11:39 ALT 10 U/L (0-33) 11/07/24 11:39 Alkaline Phosphatase 72 U/L (35-105) 11/07/24 11:39 Total Protein 6.3 g/dL (6.6-8.7) L 11/07/24 11:39 Albumin 2.7 g/dL (3.5-5.2) L 11/07/24 11:39 Globulin 3.6 g/dL (1.3-4.6) 11/07/24 11:39 Lipase 38 U/L (13-60) 11/07/24 11:39 All radiology interpretation(s) finalized by discharge Discharge Plan Discharge Patient Disposition: Home Clinical Impression: Ovarian ca, Abdominal ascites, Peritoneal carcinomatosis Condition: Stable Prescriptions: New oxycodone-acetaminophen 7.5-325 mg tablet 1 tab PO Q6H PRN (Reason: pain) Qty: 30 0RF metoclopramide HCl 10 mg tablet 10 mg PO Q6H PRN (Reason: nausea and vomiting) Qty: 20 0RF No Action bumetanide 1 mg tablet 1 mg PO DAILY Qty: 30 1RF hydrocodone-acetaminophen 7.5-325 mg tablet 1 tab PO Q6H PRN (Reason: pain) 10 Days Qty: 40 0RF metoclopramide HCl 10 mg tablet 10 mg PO TID PRN (Reason: Nausea) furosemide 40 mg tablet 40 mg PO DAILY potassium chloride 20 mEq tablet extended release 20 meq PO BID Discharge Orders: Discharge ED (Routine); Ordered 11/07/24 Ordered By: Nav Jones Referrals: Artie Faria MD [Primary Care Provider] - Discharge Diet: Advance as tolerated Discharge Activity: Increase activity as tolerated Patient Instructions: Opioid Safety, Pain Management Activity Restrictions/Additional Instructions: Thank you for choosing [facility] for your healthcare needs today. It is very important that you follow up as instructed or that you return to the Emergency Department should you have concerns or if your condition changes or worsens in any way. Follow-up with your primary care doctor and oncology as scheduled. Print Language: Yakut Coding Level of Care Code ED Clinical Practice Consultant for Barbara Costello
[2024-11-07 12:01] LABS: INR 0.85 (0.8-1.2)
[2024-11-07 12:02] LABS: Partial Thromboplastin Time 27.9 SECONDS (23.9-36.7)
[2024-11-07 12:05] LABS: Lactic Sepsis W/Reflex 1.7 mmol/L (0.5-2.2)
[2024-11-07 12:06] LABS: Alanine Aminotransferase 10 U/L (0-33); Albumin Level 2.7 g/dL (3.5-5.2); Alkaline Phosphatase 72 U/L (35-105); Anion Gap 18.1 (5-19); Aspartate Amino Transferase 18 U/L (0-32); Blood Urea Nitrogen 10 mg/dL (8-23); Calcium 9.4 mg/dL (8.5-10.5); Carbon Dioxide 26 mmol/L (22-29); Chloride 97 mmol/L (98-107); Globulin 3.6 g/dL (1.3-4.6); Glucose 101 mg/dL (65-115); Lipase 38 U/L (13-60); Osmolality Calculated 283 mOsm/kg (285-295); Potassium 4.1 mmol/L (3.5-5.1); Sodium 137 mmol/L (136-145); Total Bilirubin 0.2 mg/dL (0.15-1.2); Total Protein 6.3 g/dL (6.6-8.7)
[2024-11-07 14:47] VITALS: BP 105/61; PULSE 100; O2SAT 98
== END 2024-11-07 14:48 | disposition home or self-care (01) ==
PROVIDERS: Emergency Medicine; Emergency Provider Family Medicine; PCP Family Medicine
DX: C56.9 Malignant neoplasm of unspecified ovary (principal); R18.8 Other ascites; C78.6 Secondary malignant neoplasm of retroperitoneum and peritoneum; Z87.891 Personal history of nicotine dependence
CPT/HCPCS: 36415; 49083; 80053; 83605; 83690; 85025; 85610; 85730; 87040; 87070; 87075; 87205; 99284

== ENCOUNTER 2024-11-14 15:52 | Outpatient (CLI) | payer OTHER, SELFPAY ==
--- NOTE | 2024-11-14 16:02 | USCV_ITS ---
Malissa Ma Age: 64 Gender: F : 1960 Exam Date: 11/14/2024 16:06 Ordering Phys: Guillaume Horn III, MD Technologist: [facility] [place] [facility] [place]: edema HISTORY: Lower extremity edema. PROCEDURES: Venous duplex imaging was performed in only the left lower extremity. The following venous structures were evaluated: common femoral vein, profunda vein, proximal portion of the greater saphenous vein, superficial femoral vein, and the popliteal vein. In addition, the posterior tibial and peroneal trunk were evaluated. FINDINGS: Normal 2-D Doppler and augmentation and compressibility throughout the lower extremity venous structures. Additional imaging through the proximal calf veins also reveals no thrombus. Limited evaluation of the greater saphenous vein is patent with no thrombus. CONCLUSIONS No DVT left lower extremity. Dr. Juliette Rehman DO (Electronically Signed) Final Date: 17 November 2024 08:08 S
== END 2024-11-14 15:53 | disposition home or self-care (01) ==
PROVIDERS: PCP Family Medicine; Visit Provider Surgery
DX: C56.9 Malignant neoplasm of unspecified ovary (principal); R60.0 Localized edema
CPT/HCPCS: 93971

== ENCOUNTER 2024-11-17 09:18 | Outpatient (CLI) | payer OTHER, SELFPAY ==
--- NOTE | 2024-11-17 09:20 | CTR_ITS ---
PROCEDURE INFORMATION: Exam: CT Chest With Contrast; Diagnostic Exam date and time: 11/17/2024 10:25 AM Age: 64 years old Clinical indication: Condition or disease; Other: Ovarian cancer; Prior surgery; Surgery date: 6+ months; Surgery type: Gb port; Additional info: Staging ovarian cancer TECHNIQUE: Imaging protocol: Diagnostic computed tomography of the chest with contrast. Radiation optimization: All CT scans at this facility use at least one of these dose optimization techniques: automated exposure control; mA and/or kV adjustment per patient size (includes targeted exams where dose is matched to clinical indication); or iterative reconstruction. Contrast material: OMNI 350; Contrast volume: 100 ml; Contrast route: INTRAVENOUS (IV); COMPARISON: CT chest abdpel w/*[id number] 09/22/2024 11:23 AM RADIATION DOSE METRICS: Total DLP (mGy-cm): 579.08 FINDINGS: Thyroid: Stable appearance of thyroid gland with partially calcified small left thyroid nodule. Lungs: Stable partially calcified subpleural nodule or granuloma within left upper lobe measuring up to 6 mm. Calcified granuloma within left lower lobe. No focal consolidation. Pleural spaces: No pleural effusions. Heart: Unremarkable. No cardiomegaly. No pericardial effusion. Lymph nodes: 9.5 mm right axillary lymph node, with additional subcentimeter lymph nodes present. 1.1 cm mediastinal lymph node (12/12), new from prior study. Vasculature: Ectatic ascending thoracic aorta measures up to 3.2 cm. Bones/joints: Mild thoracic kyphosis. Soft tissues: Unremarkable. PROCEDURE INFORMATION: Exam: CT Abdomen And Pelvis With Contrast Exam date and time: 11/17/2024 10:25 AM Age: 64 years old Clinical indication: Condition or disease; Other: Ovarian cancer; Prior surgery; Surgery date: 6+ months; Surgery type: Gb port; Additional info: Staging ovarian cancer TECHNIQUE: Imaging protocol: Computed tomography of the abdomen and pelvis with contrast. Radiation optimization: All CT scans at this facility use at least one of these dose optimization techniques: automated exposure control; mA and/or kV adjustment per patient size (includes targeted exams where dose is matched to clinical indication); or iterative reconstruction. Contrast material: OMNI 350; Contrast volume: 100 ml; Contrast route: INTRAVENOUS (IV); COMPARISON: CT abdomen pelvis wo con [id number] 09/22/2024 2:08 PM RADIATION DOSE METRICS: Total DLP (mGy-cm): 579.08 FINDINGS: Lungs: Unremarkable. Liver: Similar appearance of scalloping with diaphragmatic nodule along the right hepatic lobe, which measures approximately 3.6 x 4.3 cm. There are multiple hypodense hepatic lesions measuring up to 18 mm, concerning for metastatic disease; direct comparison is difficult due to differences in technique (lack of contrast on prior study). Gallbladder and biliary ducts: Status post cholecystectomy. Pancreas: Normal. No ductal dilation. Spleen: Normal. No splenomegaly. Adrenal glands: Normal. No mass. Kidneys and ureters: Normal. No hydronephrosis. Stomach and bowel: Persistent narrowing of sigmoid colon, likely related to peritoneal carcinomatosis and adhesions. Large colonic stool burden. Appendix: No evidence of appendicitis. Intraperitoneal space: Moderate to large volume abdominopelvic ascites with areas of peritoneal nodularity. Redemonstrated nodularity along the right hepatic lobe and diaphragmatic surface compatible with peritoneal metastatic disease. Vasculature: Unremarkable. No abdominal aortic aneurysm. Lymph nodes: Numerous prominent and mildly enlarged lymph abdominopelvic nodes. Example includes 1.0 cm left para-aortic lymph node (series 5, image 32), previously subcentimeter. Numerous additional prominent lymph nodes scattered throughout the mesentery. Urinary bladder: Unremarkable as visualized. Reproductive: Redemonstrated large lobulated septated cystic lesion within the pelvis and bilateral adnexal regions. Bones/joints: No acute osseous abnormality. Advanced degenerative change within right hip joint. Soft tissues: Anasarca. Multiple mildly enhancing nodularities within anterior abdominal wall (series 5, image 48) measuring up to 2.3 cm, new from prior study. CT/CT chest abdpel w/*[id number] IMPRESSION: 1. No new or enlarging nodules identified. 2. Prominent right axillary and mediastinal lymph node, new from prior study. Attention on follow-up. 3. Stable ectatic ascending thoracic aorta measuring up to 3.2 cm. IMPRESSION: 1. Redemonstrated large loculated septated cystic lesion within the pelvis and both adnexa, not significantly changed from prior. 2. Persistent narrowing of sigmoid colon, likely related due to adhesions and peritoneal metastasis, which puts patient at high risk for bowel obstruction and/or constipation. 3. Redemonstrated large volume ascites with diffuse peritoneal metastatic disease with peritoneal nodularity, omental caking and endosteal scalloping of right hepatic lobe. Enhancing soft tissue nodularities within anterior abdominal wall, new from prior study. 4. Multiple hypodense hepatic lesions, not fully characterized but concerning for metastatic disease; direct comparison is difficult due to lack of intravenous contrast on prior study. 5. Diffuse abdominopelvic lymphadenopathy; para-aortic lymph nodes appear enlarged in comparison to prior study. 6. Anasarca.
[2024-11-17] MEDS: iohexol 350 mg/mL 500 mL Btl (per mL) PO (10:34)
[2024-11-17] MEDS: iohexol 350 mg/mL 500 mL Btl (per mL) IV (10:34)
== END 2024-11-17 09:19 | disposition home or self-care (01) ==
LOC: RAD 09:18
PROVIDERS: PCP Family Medicine; Visit Provider Student in an Organized Health Care Education/Training Program
DX: C56.9 Malignant neoplasm of unspecified ovary (principal); Z98.890 Other specified postprocedural states; N94.9 Unspecified condition associated with female genital organs and menstrual cycle; R93.89 Abnormal findings on diagnostic imaging of other specified body structures; R59.0 Localized enlarged lymph nodes; E04.1 Nontoxic single thyroid nodule; R91.8 Other nonspecific abnormal finding of lung field; J84.10 Pulmonary fibrosis, unspecified; I77.810 Thoracic aortic ectasia; M40.294 Other kyphosis, thoracic region; R93.2 Abnormal findings on diagnostic imaging of liver and biliary tract; R93.3 Abnormal findings on diagnostic imaging of other parts of digestive tract; Z90.49 Acquired absence of other specified parts of digestive tract; K59.00 Constipation, unspecified; M16.11 Unilateral primary osteoarthritis, right hip; R93.5 Abnormal findings on diagnostic imaging of other abdominal regions, including retroperitoneum; R19.00 Intra-abdominal and pelvic swelling, mass and lump, unspecified site
CPT/HCPCS: 71260; 74177

== ENCOUNTER → 2024-11-17 10:40 | Day surgery (SDC) | payer OTHER, SELFPAY ==
[2024-11-17 10:50] VITALS: BP 118/74; PULSE 93; RESP 17; TEMP 36.9; O2SAT 98
[2024-11-17 10:55] VITALS: BMI 21.1
--- NOTE | 2024-11-17 11:36 | US_ITS ---
WS: [id number] ULTRASOUND-GUIDED THERAPEUTIC PARACENTESIS Procedure, risks, and complications have been explained to the patient. Consent is obtained. Utilizing aseptic technique and 1% buffered lidocaine, a small dermatome was made through which a 5 Australian Yueh catheter was inserted. Approximately 3710 ml of light red peritoneal fluid was obtained without difficulty. No complications encountered. US/US paracentesis abd w [id number] IMPRESSION: Uncomplicated paracentesis yielding 3710 ml of peritoneal fluid.
== END ==
PROVIDERS: Radiology Diagnostic Radiology; PCP Family Medicine; Visit Provider Family Medicine
PROC: (CPT 49082; principal; 2024-11-17 11:30)
DX: R18.8 Other ascites (principal)
CPT/HCPCS: 49083

== ENCOUNTER 2024-11-27 11:12 | Day surgery (SDC) | payer OTHER, SELFPAY ==
[2024-11-27 11:23] VITALS: BP 111/85; PULSE 111; RESP 16; TEMP 36.6; O2SAT 97
[2024-11-27 11:24] VITALS: BMI 20.2
--- NOTE | 2024-11-27 11:25 | US_ITS ---
WS: [id number] ULTRASOUND-GUIDED PARACENTESIS CLINICAL INFORMATION: Abdominal ascites COMPARISON: None. Procedure Informed consent: The risks, benefits, and alternatives of the procedure were discussed with the patient. Verbal and written consent was obtained. Timeout: A timeout was performed to confirm the correct patient, procedure, and site. Preparation: A suitable skin site was identified. The patient was prepped and draped in usual sterile fashion. Lidocaine 1% was used for local anesthesia. Catheter: 4 Greenlandic One-step Yueh catheter. Side: RIGHT lower quadrant. Fluid Volume: 3750 ml Color: Clear yellow DISPOSITION: Discarded safely. Complications: None. Patient disposition: Discharged from the department in stable condition. US/US paracentesis abd w [id number] IMPRESSION: Uncomplicated ultrasound-guided paracentesis. Removal of 3750 cc
== END 2024-11-27 13:24 | disposition home or self-care (01) ==
LOC: GILAB 11:12
PROVIDERS: Radiology Neuroradiology; PCP Family Medicine; Visit Provider Family Medicine
PROC: (CPT 49082; principal; 2024-11-27 12:30)
DX: R18.8 Other ascites (principal)
CPT/HCPCS: 49083

== ENCOUNTER 2024-12-08 11:04 | Day surgery (SDC) | payer OTHER, SELFPAY ==
--- NOTE | 2024-12-08 11:40 | US_ITS ---
WS: [id number] ULTRASOUND-GUIDED PARACENTESIS CLINICAL INFORMATION: abdominal ascites COMPARISON: None. Procedure Informed consent: The risks, benefits, and alternatives of the procedure were discussed with the patient. Verbal and written consent was obtained. Timeout: A timeout was performed to confirm the correct patient, procedure, and site. Preparation: A suitable skin site was identified. The patient was prepped and draped in usual sterile fashion. Lidocaine 1% was used for local anesthesia. Catheter: 4 Irish One-step Yueh catheter. Side: RIGHT lower quadrant. Fluid Volume: 3000 ml Color: Clear yellow DISPOSITION: Discarded safely. Complications: None. Patient disposition: Discharged from the department in stable condition. US/US paracentesis abd w [id number] IMPRESSION: Uncomplicated ultrasound-guided paracentesis. Removal of 3000 cc
[2024-12-08 11:43] VITALS: BP 90/60; PULSE 103; RESP 18; TEMP 36.3; O2SAT 95
[2024-12-08 12:04] VITALS: BMI 18.3
== END 2024-12-08 13:13 | disposition home or self-care (01) ==
LOC: GILAB 11:04
PROVIDERS: Radiology Neuroradiology; PCP Family Medicine; Visit Provider Family Medicine
PROC: (CPT 49082; principal; 2024-12-08 13:00)
DX: R18.8 Other ascites (principal)
CPT/HCPCS: 49083

== ENCOUNTER 2024-12-18 11:28 | Day surgery (SDC) | payer OTHER, SELFPAY ==
--- NOTE | 2024-12-18 11:34 | US_ITS ---
WS: [id number] ULTRASOUND-GUIDED THERAPEUTIC AND DIAGNOSTIC PARACENTESIS Procedure, risks, and complications have been explained to the patient. Consent is obtained. Utilizing aseptic technique and 1% buffered lidocaine, a small dermatome was made through which a 5 Lithuanian Yueh catheter was inserted. Approximately 2450 ml of clear peritoneal fluid was obtained without difficulty. No complications encountered. US/US paracentesis abd w [id number] IMPRESSION: Uncomplicated paracentesis yielding 2450 ml of peritoneal fluid.
[2024-12-18 11:46] VITALS: BP 96/62; PULSE 101; RESP 16; TEMP 36.4; O2SAT 95; BMI 15.5
== END 2024-12-18 13:21 | disposition home or self-care (01) ==
PROVIDERS: Radiology Diagnostic Radiology; PCP Family Medicine; Visit Provider Family Medicine
PROC: (CPT 49082; principal; 2024-12-18 12:30)
DX: R18.8 Other ascites (principal); C56.9 Malignant neoplasm of unspecified ovary; C80.0 Disseminated malignant neoplasm, unspecified
CPT/HCPCS: 49083